=== PATIENT | female | born 1985 | race Caucasian/White ===

== ENCOUNTER 2016-12-11 16:59 | Emergency (ER) | payer MEDICARE, MEDICAID ==
[~2016-12-11] VITALS: Ht 162.6 cm; Wt 49.1 kg
[~2016-12-11 16:59] MED LIST: ANTI INFLAMATORY; FIORICET 325 MG1 TA1 PO; LIORESAL 1010 MG/TAB PO; MACROBID 1100 MG/CAP PO; METROGEL-VAGINA0.75% VG; MOBIC15 MG PO; MUCINEX 60600 MG/TA1 PO; NORCO 325 MG-51 TAB PO; OXY IR5 MG PO; PERCOCET 325 MG1 TA2 PO; VALIUM 5MG T5 MG/TAB PO; VIVLODEX10 MG PO
[2016-12-11 17:06] VITALS: TEMP 98.5
[2016-12-11] MEDS ORDERED: ATIVAN 0.50.5 MG/TAB PO (17:08)
[2016-12-11] MEDS ORDERED: AMOXICILLIN875 MG PO (19:37)
[2016-12-11] MEDS ORDERED: PREDNISONE20 MG PO (19:37)
[2016-12-11 20:10] VITALS: BP 109/76; PULSE 86
== END 2016-12-11 20:12 | disposition home or self-care (01) ==
LOC: COL.ER 16:59
DX: J01.90 Acute sinusitis, unspecified (principal)
CPT/HCPCS: J1885; J7030; J7512

== ENCOUNTER 2017-01-16 01:37 | Emergency (ER) | payer MEDICARE, MEDICAID ==
[~2017-01-16] VITALS: Ht 162.6 cm; Wt 50.1 kg
[~2017-01-16 01:37] MED LIST changes: +AMOXICILLIN875 MG PO; +ATIVAN 0.50.5 MG/TAB PO; +PREDNISONE20 MG PO
[2017-01-16 01:41] VITALS: TEMP 97.6
[2017-01-16] MEDS ORDERED: ADDERALL XR 10M10 MG PO (01:41)
[2017-01-16 02:41] VITALS: PULSE 59
[2017-01-16 02:41] LABS: BASO % 0.5 % (0.0-2.0); EOS # 0.1 (0.0-0.7); GRAN % 50.9 % (42.2-75.2); HEMATOCRIT 39.8 % (37.0-47.0); HEMOGLOBIN 13.7 g/dl (12.5-16.0); LYMPH # 1.6 (1.2-3.4); MEAN CELL VOLUME 89 fl (80.0-100.0); MEAN CORPUSCULAR HEMOGLOBIN 31 pg (27.0-31.0); MEAN CORPUSCULAR HGB CONC 34 g/dl (33.0-37.0); MEAN PLATELET VOLUME 8.5 fl (7.4-10.4); MONO # 0.3 (0.1-0.6); MONO % 7.3 % (1.7-9.3); PLATELET COUNT 235 K/mm3 (130-400); RED BLOOD COUNT 4.49 M/mm3 (4.10-5.30); REDCELL DISTRIBUTION WIDTH-CV 12.5 % (11.5-14.5)
[2017-01-16 02:46] LABS: ADJUSTED CALCIUM 8.9 mg/dL (8.4-10.2); ALBUMIN 4.8 gm/dL (3.5-5.0); BILIRUBIN,TOTAL 0.9 mg/dL (0.0-1.0); CALCIUM 9.5 mg/dL (8.4-10.2); CREATININE, serum 0.75 mg/dL (0.52-1.25); POTASSIUM 3.7 mmol/L (3.4-5.0); TOTAL PROTEIN 7.5 gm/dL (6.4-8.2)
[2017-01-16 02:54] LABS: PH 7 (5-8); SQUAMOUS EPITHELIAL 0-2 /hpf; URINE APPEARANCE Clear; URINE BACTERIA Rare /hpf; URINE BILIRUBIN Negative (NEGATIVE); URINE BLOOD Negative (NEGATIVE); URINE COLOR Yellow; URINE GLUCOSE Negative (NEGATIVE); URINE KETONE Negative (NEGATIVE); URINE RBC 0-2 /hpf; URINE UROBILINOGEN Negative (NEGATIVE); URINE WBC 0-2 /hpf
[2017-01-16 03:45] VITALS: BP 116/83
== END 2017-01-16 03:45 | disposition home or self-care (01) ==
LOC: COL.ER 01:37
PROVIDERS: Nurse Practitioner
DX: R42 Dizziness and giddiness (principal); F90.9 Attention-deficit hyperactivity disorder, unspecified type; F41.9 Anxiety disorder, unspecified

== ENCOUNTER 2017-04-01 13:26 | Emergency (ER) | payer MEDICARE, MEDICAID ==
[~2017-04-01] VITALS: Ht 162.6 cm; Wt 51.8 kg
[~2017-04-01 13:26] MED LIST changes: +ADDERALL XR 10M10 MG PO
[2017-04-01 13:29] VITALS: BP 103/62; PULSE 72; TEMP 98.4
[2017-04-01] MEDS ORDERED: AMOXICILLIN875 MG PO (13:46)
== END 2017-04-01 14:35 | disposition home or self-care (01) ==
LOC: COL.ER 13:26
DX: S05.02XA Injury of conjunctiva and corneal abrasion without foreign body, left eye, initial encounter (principal); X58.XXXA Exposure to other specified factors, initial encounter; Y92.34 Swimming pool (public) as the place of occurrence of the external cause

== ENCOUNTER 2017-05-15 03:11 | Emergency (ER) | payer MEDICARE ==
[~2017-05-15] VITALS: Ht 162.6 cm; Wt 53.7 kg
[2017-05-15 03:15] VITALS: TEMP 98
[2017-05-15] MEDS ORDERED: OXY IR5 MG PO (03:18)
[2017-05-15] MEDS ORDERED: VIVLODEX5 MG PO (03:19)
[2017-05-15] MEDS ORDERED: FIORICET 325 MG1 TA1 PO (03:19)
[2017-05-15 04:10] LABS: BASO % 0.2 % (0.0-2.0); EOS # 0.1 (0.0-0.7); EOS % 1.5 % (0-4.0); GRAN # 3.7 (1.4-6.5); GRAN % 66.4 % (42.2-75.2); HEMOGLOBIN 12.1 g/dl (12.5-16.0); LYMPH # 1.4 (1.2-3.4); LYMPH % 25.9 % (20.0-51.0); MEAN CELL VOLUME 86 fl (80.0-100.0); MEAN CORPUSCULAR HEMOGLOBIN 30 pg (27.0-31.0); MEAN CORPUSCULAR HGB CONC 35 g/dl (33.0-37.0); MEAN PLATELET VOLUME 8.9 fl (7.4-10.4); MONO # 0.3 (0.1-0.6); MONO % 5.6 % (1.7-9.3); PLATELET COUNT 193 K/mm3 (130-400); RED BLOOD COUNT 3.98 M/mm3 (4.10-5.30); REDCELL DISTRIBUTION WIDTH-CV 12.2 % (11.5-14.5); WHITE BLOOD COUNT 5.5 K/mm3 (4.8-10.8)
[2017-05-15 04:16] LABS: PH 7 (5-8); SQUAMOUS EPITHELIAL 0-2 /hpf; URINE APPEARANCE Hazy; URINE BACTERIA None Seen /hpf; URINE BILIRUBIN Negative (NEGATIVE); URINE BLOOD 1+ (NEGATIVE); URINE COLOR Yellow; URINE GLUCOSE Negative (NEGATIVE); URINE KETONE Negative (NEGATIVE); URINE UROBILINOGEN Negative (NEGATIVE)
[2017-05-15 04:17] LABS: HEMATOCRIT 34.4 % (37.0-47.0)
[2017-05-15] MEDS ORDERED: ULTRAM 50MG TAB50 MG PO (04:21)
[2017-05-15] MEDS ORDERED: ZOFRAN8 MG PO (04:21)
[2017-05-15 04:23] LABS: ANION GAP 10 mmol/L (7-16); BLOOD UREA NITROGEN 10 mg/dL (7-17); CALCIUM 8.5 mg/dL (8.4-10.2); CARBON DIOXIDE 22 mmol/L (22-30); CHLORIDE 105 mmol/L (98-107); CREATININE, serum 0.68 mg/dL (0.52-1.25); GLUCOSE 82 mg/dL (74-106); POTASSIUM 3.4 mmol/L (3.4-5.0); SODIUM 137 mmol/L (137-145)
[2017-05-15 04:27] LABS: C-REACTIVE PROTEIN < 0.5 mg/dL (0.0-0.9)
[2017-05-15 04:35] LABS: ERYTHROCYTE SEDIMENTATION RATE 1 mm/hr (0-20)
[2017-05-15 05:34] VITALS: BP 118/76; PULSE 79
[2017-05-15] MEDS ORDERED: PERCOCET 325 MG1 TA2 PO (20:15)
[2017-05-16] MEDS ORDERED: DOXYCYCLINE 10100 MG PO (00:50)
== END 2017-05-15 05:26 | disposition home or self-care (01) ==
LOC: COL.ER 03:11
PROVIDERS: Emergency Medicine
DX: N36.8 Other specified disorders of urethra (principal); R30.0 Dysuria; F90.9 Attention-deficit hyperactivity disorder, unspecified type; G43.909 Migraine, unspecified, not intractable, without status migrainosus
CPT/HCPCS: J1885; J2405; J7030

== ENCOUNTER 2017-05-15 19:20 | Emergency (ER) | payer MEDICARE ==
[~2017-05-15] VITALS: Ht 162.6 cm; Wt 53.6 kg
[~2017-05-15 19:20] MED LIST changes: +ULTRAM 50MG TAB50 MG PO; +VIVLODEX5 MG PO; +ZOFRAN8 MG PO
[2017-05-15] MEDS ORDERED: PERCOCET 325 MG1 TA2 PO (20:15)
[2017-05-15 20:59] LABS: BASO % 0.3 % (0.0-2.0); EOS % 0.7 % (0-4.0); GRAN # 5.1 (1.4-6.5); GRAN % 89.1 % (42.2-75.2); HEMOGLOBIN 13.1 g/dl (12.5-16.0); LYMPH # 0.3 (1.2-3.4); LYMPH % 5.2 % (20.0-51.0); MEAN CELL VOLUME 87 fl (80.0-100.0); MEAN CORPUSCULAR HEMOGLOBIN 30 pg (27.0-31.0); MEAN CORPUSCULAR HGB CONC 35 g/dl (33.0-37.0); MEAN PLATELET VOLUME 8.5 fl (7.4-10.4); MONO # 0.3 (0.1-0.6); MONO % 4.5 % (1.7-9.3); PLATELET COUNT 165 K/mm3 (130-400); RED BLOOD COUNT 4.35 M/mm3 (4.10-5.30); REDCELL DISTRIBUTION WIDTH-CV 12.3 % (11.5-14.5); WHITE BLOOD COUNT 5.8 K/mm3 (4.8-10.8)
[2017-05-15 21:10] LABS: ADJUSTED CALCIUM 8.4 mg/dL (8.4-10.2); ALBUMIN 4.9 gm/dL (3.5-5.0); BILIRUBIN,TOTAL 1.1 mg/dL (0.0-1.0); C-REACTIVE PROTEIN 1.1 mg/dL (0.0-0.9); CALCIUM 9.1 mg/dL (8.4-10.2); CREATININE, serum 0.72 mg/dL (0.52-1.25); POTASSIUM 3.9 mmol/L (3.4-5.0); TOTAL PROTEIN 7.7 gm/dL (6.4-8.2)
[2017-05-15 21:23] LABS: PH 6 (5-8); SQUAMOUS EPITHELIAL 0-2 /hpf; URINE APPEARANCE Clear; URINE BACTERIA None Seen /hpf; URINE BILIRUBIN Negative (NEGATIVE); URINE BLOOD Negative (NEGATIVE); URINE COLOR Yellow; URINE GLUCOSE Negative (NEGATIVE); URINE KETONE 1+ (NEGATIVE); URINE RBC 0-2 /hpf; URINE WBC 0-2 /hpf
[2017-05-15 23:23] VITALS: TEMP 99.9
[2017-05-16] MEDS ORDERED: DOXYCYCLINE 10100 MG PO (00:50)
[2017-05-16 00:59] LABS: CHLAMYDIA/TRACH by PCR Female NOT DETECTED; NEISSERIA GON by PCR Female NOT DETECTED
[2017-05-16 01:05] VITALS: BP 91/59; PULSE 80
== END 2017-05-16 01:11 | disposition home or self-care (01) ==
LOC: COL.ER 19:20
PROVIDERS: Physician Assistant
DX: N83.201 Unspecified ovarian cyst, right side (principal); G43.909 Migraine, unspecified, not intractable, without status migrainosus; G89.29 Other chronic pain; M54.9 Dorsalgia, unspecified; Z98.51 Tubal ligation status; Z90.49 Acquired absence of other specified parts of digestive tract; Z98.890 Other specified postprocedural states
CPT/HCPCS: J0696; J1170; J1885; J2405; J7030; Q9967

== ENCOUNTER 2017-09-10 18:23 | Emergency (ER) | payer MEDICARE, OTHER ==
[~2017-09-10] VITALS: Ht 162.6 cm; Wt 50.3 kg
[~2017-09-10 18:23] MED LIST changes: -ADDERALL XR 10M10 MG PO; +ADDERALL XR15 MG PO; +DOXYCYCLINE 10100 MG PO
[2017-09-10 18:26] VITALS: BP 90/50; TEMP 98.1
[2017-09-10] MEDS ORDERED: ATIVAN 0.50.5 MG/TAB PO (18:31)
[2017-09-10] MEDS ORDERED: LIORESAL 1010 MG/TAB PO (20:34)
[2017-09-10 20:43] VITALS: PULSE 70
== END 2017-09-10 20:44 | disposition home or self-care (01) ==
LOC: COL.ER 18:23
DX: M62.830 Muscle spasm of back (principal); M54.6 Pain in thoracic spine; G43.909 Migraine, unspecified, not intractable, without status migrainosus; F98.8 Other specified behavioral and emotional disorders with onset usually occurring in childhood and adolescence
CPT/HCPCS: J1170